=== PATIENT | female | born 1995 | race Two or more races ===

== ENCOUNTER 2021-08-22 00:52 | Inpatient (IN) | payer OTHER ==
[~2021-08-22] VITALS: Ht 152.4 cm; Wt 67.1 kg
[2021-08-22] MEDS ORDERED: PANTOPRAZOLE SO40 MG PO (01:43)
[2021-08-22] MEDS ORDERED: FOLIC ACID1 MG PO (01:44)
[2021-08-22] MEDS ORDERED: PRENATAL TABLE1 EAC3 PO (01:44)
== END 2021-08-25 11:49 | disposition home or self-care (01) | DRG 807 ==
LOC: OBS/DEL 00:52 → LDR 08:39 → OB/GYN 08:39
PROVIDERS: ADMIT Obstetrics & Gynecology; ATTEND Obstetrics & Gynecology
PROC: 4A1HXCZ Monitoring of Products of Conception, Cardiac Rate, External Approach (ICD-10-PCS; 2021-08-22)
PROC: 10E0XZZ Delivery of Products of Conception, External Approach (ICD-10-PCS; principal; 2021-08-23)
PROC: 0W8NXZZ Division of Female Perineum, External Approach (ICD-10-PCS; 2021-08-23)
DX: O80 Encounter for full-term uncomplicated delivery (principal); Z37.0 Single live birth; Z3A.38 38 weeks gestation of pregnancy; Z20.822 Contact with and (suspected) exposure to COVID-19